=== PATIENT | female | born 1940 | race Two or more races ===

== ENCOUNTER 2024-12-14 09:25 | Emergency (ER) | payer OTHER ==
[~2024-12-14] VITALS: Ht 160 cm; Wt 73.0 kg
--- NOTE | 2024-12-14 09:54 | ED.PDOC ---
History of Present Illness HPI Comments 84-year-old female presents with a chief complaint of throat pain and wheezing s/p choking episode. Patient states that she was eating cream of wheat with cranberries and choke on one of the cranberries. Patient reports that she vomited her food up and thinks that the cranberry is still in her throat. Anthony enrique is wheezing and was given an albuterol treatment en route to ER. Chief Complaint: Foreign Body Time Seen by MD: 09:35 Primary Care Provider: KO Braswell Notes: Nurses Notes, Medications, Allergies Allergies: Coded Allergies: Shellfish Allergy (Verified Allergy, Unknown, 12/14/24) Uncoded Allergies: MUSHROOMS (Allergy, Unknown, 12/14/24) Information Source: Patient Mode of Arrival: EMS Severity: Moderate Timing: Minutes Duration: Since onset Prehospital treatment: Breathing Tx, Assistant [employer] Past Medical History PAST MEDICAL HISTORY: HTN, Thyroid Surgical History: Denies all surgeries STENCILER History: Denies all STENCILER Hx Family History Family History: Reviewed,noncontributory to illness Social History Smoker: Non-Smoker Alcohol: Denies ETOH Use Drugs: Denies Drug Use Lives In: Home Constitutional: denies: chills, diaphoresis, fatigue, fever, malaise, sweats, weakness, others EENTM: reports: throat pain; denies: blurred vision, double vision, ear bleeding, ear discharge, ear drainage, ear pain, ear ringing, eye pain, eye redness, hearing loss, mouth pain, mouth swelling, nasal discharge, nose bleeding, nose congestion, nose pain, photophobia, tearing, throat swelling, voice changes, others Respiratory: reports: wheezing; denies: cough, hemoptysis, orthopnea, SOB at rest, shortness of breath, SOB with excertion, stridor, others Cardiovascular: denies: chest pain, dizzy spells, diaphoresis, Dyspnea on ex ertion, edema, irregular heart beat, left arm pain, lightheadedness, palpitations, PND, syncope, others Gastrointestinal: denies: abdomen distended, abdominal pain, blood streaked bowels, constipated, diarrhea, dysphagia, difficulty swallowing, hematemesis, melena, nausea, poor appetite, poor fluid intake, rectal bleeding, rectal pain, vomiting, others Genitourinary: denies: abnormal vagina bleeding, burning, dyspareunia, dysuria, flank pain, frequency, hematuria, incontinence, pain, , vagina discharge, urgency, others Neurological: denies: dizziness, fainting, headache, left sided numbness, left sided weakness, numbness, paresthesia, pre-existing deficit, right sided numbness, right sided weakness, seizure, speech problems, tingling, tremors, weakness, others Musculoskeletal: denies: back pain, gout, joint pain, joint swelling, muscle pain, muscle stiffness, neck pain, others Integumetry: denies: bruises, change in color, change in hair/nails, dryness, laceration, lesions, lumps, rash, wounds, others Allergic/Immunocompromised: denies: Difficulty Healing, Frequent Infections, Hives, Itching, others Hematologic/Lymphatic: denies: anemia, blood clots, easy bleeding, easy bruising, swollen glands, others Endocrine: denies: excessive hunger, excessive sweating, excessive thirst, excessive urination, flushing, intolerance to cold, intolerance to heat, unexplained weight gain, unexplained weight loss, others Psychiatric: denies: anxiety, bipolar disorder, depression, hopeless, panic disorder, schizophrenia, sleepless, suicidal, others All Other Systems: Reviewed and Negative Physical Exam General Appearance: Moderate Distress, Normal HEENT: Normal ENT Inspection, Pharynx Normal, TMs Normal Neck: Full Range of Motion, Non-Tender, Normal, Normal Inspection Respiratory: Chest Non-Tender, No Accessory Muscle Use, Wheezing Cardiovascular: No Edema, No JVD, No Murmur, No Gallop, Normal Peripheral Pulses, Regular Rate/Rhythm Breast Exam: Deferred Gastrointestinal: No Organomegaly, Non Tender, No Pulsatile Mass, Normal Bowel Sounds, Soft Genitalia: Deferred Pelvic: Deferred Rectal: Deferred Extremities: No calf tenderness, Normal capillary refill, Normal inspection, Normal range of motion, Non-tender, No pedal edema Musculoskeletal : Apperance: Normal Neurologic: Alert, line mechanic II-XII nml as Tested, No Motor Deficits, Normal Affect, Normal Mood, No Sensory Deficits Cerebellar Function: Normal Reflexes: Normal Skin: Dry, Normal Color, Warm Peripheral Pulses: 3+ Radial (R), 3+ Radial (L) Lymphatic: No Adenopathy Was a procedure done? Was a procedure done?: No Differential Dx Considerations may include: Foreign body Pneumonitis X-Ray, Labs, Meds, VS Vital Signs Date Time Temp Pulse Resp B/P (MAP) Pulse Ox O2 Delivery O2 Flow Rate FiO2 12/14/24 13:36 97.4 77 16 178/81 (113) 99 97.4 12/14/24 10:28 74 19 96 Room Air* 0 21 12/14/24 09:44 98.3 85 20 149/81 (103) 98 98.3 Lab Test 12/14/24 10:08 12/14/24 10:05 Range/Units White Blood Count 7.2 4.4-10.8 10^3/uL Red Blood Count 3.59 L 4.0-5.20 10^6/uL Hemoglobin 11.6 L 12.2-16.2 g/dL Hematocrit 34.3 L 36.0-46.0 % Mean Corpuscular Volume 95.5 80.0-100.0 fL Mean Corpuscular Hemoglobin 32.4 H 28.0-32.0 pg Mean Corpuscular Hemoglobin Concent 33.9 32.0-36.0 g/dL Red Cell Distribution Width 12.5 11.8-14.3 % Platelet Count 219 140-450 10^3/uL Mean Platelet Volume 8.0 6.9-10.8 fL Neutrophils (%) (Auto) 65.9 37.0-80.0 % Lymphocytes (%) (Auto) 23.4 10.0-50.0 % Monocytes (%) (Auto) 6.7 0.0-12.0 % Eosinophils (%) (Auto) 3.4 0.0-7.0 % Basophils (%) (Auto) 0.6 0.0-2.0 % Neutrophils # (Auto) 4.7 1.6-8.6 10 ^3/uL Lymphocytes # (Auto) 1.7 0.4-5.4 10 ^3/uL Monocytes # (Auto) 0.5 0-1.3 10 ^3/uL Eosinophils # (Auto) 0.2 0-0.8 10 ^3/uL Basophils # (Auto) 0 0-0.2 10 ^3/uL Nucleated Red Blood Cells 0.0 % Sodium Level 146 H 136-145 mmol/L Potassium Level 2.9 L 3.5-5.1 mmol/L Chloride Level 117 H 98-107 mmol/L Carbon Dioxide Level 20 20-31 mmol/L Anion Gap 9 5-15 Blood Urea Nitrogen 15 9-23 mg/dL Creatinine 0.78 0.550-1.02 mg/dL Glomerular Filtration Rate Calc 76 >90 mL/min BUN/Creatinine Ratio 19.2 10.0-20.0 Serum Glucose 106 74-106 mg/dL Calcium Level 8.0 L 8.7-10.4 mg/dL Urine Color Light-yellow Yellow Urine Clarity Clear Clear Urine pH 6.5 5.0-9.0 Urine Specific [place] 1.009 1.001-1.035 Urine Protein Negative Negative Urine Ketones Negative Negative Urine Blood Negative Negative /uL Urine Nitrite Negative Negative Urine Bilirubin Negative Negative Urine Urobilinogen Normal Negative mg/dL Urine Leukocyte Esterase Negative Negative /uL Urine RBC <1 0 - 4 /hpf Urine Microscopic WBC < 1 0-5 /HPF Urine Squamous Epithelial Cells Few <5 /hpf Urine Bacteria Few H None Seen /hpf Urine Glucose Normal Normal mg/dL Current Medications Medications (Trade) Dose Ordered Sig/Lamar Route Start Time Stop Time Status Last Admin Methylprednisolone Sodium Succinate (Solu Medrol) 125 mg ONCE ONCE IV 12/14/24 10:00 12/14/24 10:01 DC 12/14/24 10:04 Guaifenesin/ Dextromethorphan (Robitussin-Dm Liquid) 10 ml ONCE ONCE PO 12/14/24 10:30 12/14/24 10:31 DC 12/14/24 10:35 Ceftriaxone Sodium 50 ml @ 100 mls/hr ONCE ONCE IV 12/14/24 10:45 12/14/24 11:14 DC 12/14/24 10:37 Azithromycin 250 ml @ 125 mls/hr ONCE ONCE IV 12/14/24 10:45 12/14/24 12:44 DC 12/14/24 10:37 Potassium Bicarbonate (Klor-Con/Ef) 50 meq ONCE ONCE PO 12/14/24 12:45 12/14/24 12:48 DC 12/14/24 12:53 Patient alert. Has wheezing. Foreign body. Vitals stable. Was given steroid. Sodium level slightly elevated. Possible pneumonitis. Was given Rocephin. Possible bronchoscopy. Potassium is low. Was given potassium. Patient able to swallow. Spoke with choice physician. Agreed she can be going home. Saturation pristine on room air. Heart rate within normal limits. Respiratory rate within normal limits. No leg swelling. Explained to the patient. Was told to follow up with her primary care physician. Was told to come back if there is any problem. Time of 1ST Reevaluation: 10:05 Reevaluation 1ST: Unchanged Patient Education/Counseling: Diagnosis, Treatment, Need For Follow Up Family Education/Counseling: No Family Present SEPSIS Sepsis Screen Date sepsis recognized/suspect: Dec 14, 2024 Time Sepsis recognized/suspect: 929 Recent Procedure: No On Antibiotic Therapy: No Respiratory Rate >20: No Heart Rate >90: No Temp<36 C (96.8 F) or >38.3 C: No SBP <90 or MAP <65 mmHG: No New Acute Mental Status Change: No Is the patient on CPAP, BIPAP,: No Physician Orders Chest Portable (12/14/24 09:52) Vital Signs Date Time Temp Pulse Resp B/P (MAP) Pulse Ox O2 Delivery O2 Flow Rate FiO2 12/14/24 13:36 97.4 77 16 178/81 (113) 99 97.4 12/14/24 10:28 74 19 96 Room Air* 0 21 12/14/24 09:44 98.3 85 20 149/81 (103) 98 98.3 Laboratory Tests Test 12/14/24 10:08 White Blood Count 7.2 10^3/uL (4.4-10.8) Medications Medications Dose Ordered Sig/Lamar Route Start Time Stop Time Status Last Admin Dose Admin Azithromycin 250 ml @ 125 mls/hr ONCE ONCE IV 12/14/24 10:45 12/14/24 12:44 DC 12/14/24 10:37 Ceftriaxone Sodium 50 ml @ 100 mls/hr ONCE ONCE IV 12/14/24 10:45 12/14/24 11:14 DC 12/14/24 10:37 Guaifenesin/ Dextromethorphan 10 ml ONCE ONCE PO 12/14/24 10:30 12/14/24 10:31 DC 12/14/24 10:35 Methylprednisolone Sodium Succinate 125 mg ONCE ONCE IV 12/14/24 10:00 12/14/24 10:01 DC 12/14/24 10:04 Potassium Bicarbonate 50 meq ONCE ONCE PO 12/14/24 12:45 12/14/24 12:48 DC 12/14/24 12:53 Departure 1 Departure Time of Disposition: 10:31 Impression: Primary Impression: Hypokalemia Additional Impression: Pneumonitis Disposition: 01 HOME / SELF CARE / HOMELESS Condition: Good e-Prescriptions Clindamycin Hcl (Clindamycin Hcl) 300 Mg Cap 1 CAP PO TID for 7 Days, #21 CAP Prov: COOKIE BUSH MD 12/14/24 Amoxicillin Trihydrate (Amoxicillin) 500 Mg Tab 1 TAB PO TID for 7 Days, #21 TAB Prov: COOKIE BUSH MD 12/14/24 Discharged With: Self Critical Care Note Critical Care Time?: Yes (90 min-critical care time only) Critical care comment: Monitor for respiratory distress Stability Stability form required: No Heart Score Heart Score: Heart Score Response (Comments) Value History N/A 0 EKG N/A 0 Age N/A 0 Risk Factors N/A 0 Troponin N/A 0 Total 0 I personally scribed for COOKIE BUSH MD ([email or web address]) on 12/14/24 at 09:54. Electronically submitted by Yasmani Umaña ([email or web address]). COOKIE BUSH MD Dec 14, 2024 09:54
[2024-12-14] MEDS: methylPREDNISolone SOD SUCC 125 MG/2 ML VL IV ONE (10:04)
[2024-12-14 10:19] LABS: Basophils # (auto) 0 10 ^3/uL (0-0.2); Basophils % (auto) 0.6 % (0.0-2.0); Eosinophils # (auto) 0.2 10 ^3/uL (0-0.8); Eosinophils % (auto) 3.4 % (0.0-7.0); Hematocrit 34.3 % (36.0-46.0); Hemoglobin 11.6 g/dL (12.2-16.2); Lymphocytes # (auto) 1.7 10 ^3/uL (0.4-5.4); Lymphocytes % (auto) 23.4 % (10.0-50.0); Mean Corpuscular Hemoglobin 32.4 pg (28.0-32.0); Mean Corpuscular Hgb Conc. 33.9 g/dL (32.0-36.0); Mean Corpuscular Volume 95.5 fL (80.0-100.0); Monocytes # (auto) 0.5 10 ^3/uL (0-1.3); Monocytes % (auto) 6.7 % (0.0-12.0); Neutrophils # (auto) 4.7 10 ^3/uL (1.6-8.6); Neutrophils % (auto) 65.9 % (37.0-80.0); Platelet Count (auto) 219 10^3/uL (140-450); Red Blood Cells 3.59 10^6/uL (4.0-5.20); Red Cell Distribution Width 12.5 % (11.8-14.3); White Blood Cell 7.2 10^3/uL (4.4-10.8)
[2024-12-14 10:28] VITALS: PULSE 74; RESP 19; O2SAT 96
[2024-12-14 10:29] LABS: Anion Gap 9 (5-15); Carbon Dioxide 20 mmol/L (20-31); Chloride 117 mmol/L (98-107); Potassium 2.9 mmol/L (3.5-5.1); Sodium 146 mmol/L (136-145)
[2024-12-14 10:34] LABS: BUN/Creatinine Ratio 19.2 (10.0-20.0); Blood Urea Nitrogen 15 mg/dL (9-23)
--- NOTE | 2024-12-14 10:34 | DVH ---
XY CHEST PORTABLE, HISTORY: sob COMPARISON: None None TECHNICAL DATA: 1 view of the chest was obtained. FINDINGS: Lines and tubes: None Cardiomediastinal silhouette: normal Pulmonary vasculature: normal Lung expansion: normal Lung airspace: normal Lung interstitium: normal Pleura: normal Pneumothorax: no Bones: Unremarkable Other: no IMPRESSION: No acute intrathoracic abnormality.
[2024-12-14] MEDS: guaiFENesin-DM 100/10mg/5ml SYR PO ONE (10:35)
[2024-12-14] MEDS: cefTRIAXone 1GM/50ML D5W 50 ML IV ONE (10:37)
[2024-12-14] MEDS: AZITHROMYCIN 500MG/ 250ML 250 ML IV ONE (10:37)
[2024-12-14 10:44] LABS: Glucose 106 mg/dL (74-106)
[2024-12-14 11:28] LABS: Urine Bacteria FEW /hpf (None Seen); Urine Blood Negative /uL (Negative); Urine Clarity Clear (Clear); Urine Protein, UAD Negative (Negative); Urine Specific Gravity 1.009 (1.001-1.035); Urine Squamous Epithelial Cell FEW /hpf (<5); Urine Urobilinogen Normal (Negative); Urine WBC < 1 /HPF (0-5); Urine pH 6.5 (5.0-9.0)
[2024-12-14 11:29] LABS: Urine Color Light-Yellow (Yellow)
[2024-12-14] MEDS ORDERED: POTASSIUM CHLORIDE 40 MEQ, LIDOCAINE 1% (LOCAL ANESTH.) 4 ML in SODIUM CHL 0.9% 250 ML IV ONE (12:30)
--- NOTE | 2024-12-14 12:32 | DVHINCON2 ---
Date of service: Dec 14, 2024 Allergies: Coded Allergies: Shellfish Allergy (Verified Allergy, Unknown, 12/14/24) Uncoded Allergies: MUSHROOMS (Allergy, Unknown, 12/14/24) Vital Signs Vital Signs Date Time Temp Pulse Resp B/P (MAP) Pulse Ox O2 Delivery O2 Flow Rate FiO2 12/14/24 10:28 74 19 96 Room Air* 0 21 12/14/24 09:44 98.3 149/81 (103) 98.3 Labs/Diagnostic Data Labs Test 12/14/24 10:08 12/14/24 10:05 Range/Units White Blood Count 7.2 4.4-10.8 10^3/uL Red Blood Count 3.59 L 4.0-5.20 10^6/uL Hemoglobin 11.6 L 12.2-16.2 g/dL Hematocrit 34.3 L 36.0-46.0 % Mean Corpuscular Volume 95.5 80.0-100.0 fL Mean Corpuscular Hemoglobin 32.4 H 28.0-32.0 pg Mean Corpuscular Hemoglobin Concent 33.9 32.0-36.0 g/dL Red Cell Distribution Width 12.5 11.8-14.3 % Platelet Count 219 140-450 10^3/uL Mean Platelet Volume 8.0 6.9-10.8 fL Neutrophils (%) (Auto) 65.9 37.0-80.0 % Lymphocytes (%) (Auto) 23.4 10.0-50.0 % Monocytes (%) (Auto) 6.7 0.0-12.0 % Eosinophils (%) (Auto) 3.4 0.0-7.0 % Basophils (%) (Auto) 0.6 0.0-2.0 % Neutrophils # (Auto) 4.7 1.6-8.6 10 ^3/uL Lymphocytes # (Auto) 1.7 0.4-5.4 10 ^3/uL Monocytes # (Auto) 0.5 0-1.3 10 ^3/uL Eosinophils # (Auto) 0.2 0-0.8 10 ^3/uL Basophils # (Auto) 0 0-0.2 10 ^3/uL Nucleated Red Blood Cells 0.0 % Sodium Level 146 H 136-145 mmol/L Potassium Level 2.9 L 3.5-5.1 mmol/L Chloride Level 117 H 98-107 mmol/L Carbon Dioxide Level 20 20-31 mmol/L Anion Gap 9 5-15 Blood Urea Nitrogen 15 9-23 mg/dL Creatinine 0.78 0.550-1.02 mg/dL Glomerular Filtration Rate Calc 76 >90 mL/min BUN/Creatinine Ratio 19.2 10.0-20.0 Serum Glucose 106 74-106 mg/dL Calcium Level 8.0 L 8.7-10.4 mg/dL Urine Color Light-yellow Yellow Urine Clarity Clear Clear Urine pH 6.5 5.0-9.0 Urine Specific [place] 1.009 1.001-1.035 Urine Protein Negative Negative Urine Ketones Negative Negative Urine Blood Negative Negative /uL Urine Nitrite Negative Negative Urine Bilirubin Negative Negative Urine Urobilinogen Normal Negative mg/dL Urine Leukocyte Esterase Negative Negative /uL Urine RBC <1 0 - 4 /hpf Urine Microscopic WBC < 1 0-5 /HPF Urine Squamous Epithelial Cells Few <5 /hpf Urine Bacteria Few H None Seen /hpf Urine Glucose Normal Normal mg/dL Problems(with codes): (1) Pneumonitis Plan discussed with: MABEL Saini MD Dec 14, 2024 12:32
[2024-12-14] MEDS: POTASSIUM EFFERVESENT TAB 25 MEQ PO ONE (12:53)
[2024-12-14 13:36] VITALS: BP 178/81; PULSE 77; RESP 16; TEMP 97.4; O2SAT 99
[2024-12-14] MEDS ORDERED: AMOX500T3 PO (13:56)
[2024-12-14] MEDS ORDERED: CLIN1CAP70 PO (13:56)
== END 2024-12-14 14:11 | disposition home or self-care (01) ==
LOC: EDBD 09:25 → ER 09:25
DX: E87.6 Hypokalemia (principal); J98.4 Other disorders of lung; I10 Essential (primary) hypertension
CPT/HCPCS: 36415; 71045; 80048; 81001; 85025; 96365; 96366; 96368; 96375; 99284; J0456; J0696; J2003; J2919; J3480; J7050